=== PATIENT | male | born 1995 | race Caucasian/White ===

== ENCOUNTER 2018-10-17 08:58 | Emergency (ER) | payer MEDICAID ==
[~2018-10-17] VITALS: Ht 180.3 cm; Wt 68.0 kg
[~2018-10-17 08:58] MED LIST: ALBU0.0952 IH
[2018-10-17 09:00] VITALS: BP 137/79
[2018-10-17 09:53] VITALS: BP 108/72
== END 2018-10-17 09:53 | disposition home or self-care (01) ==
LOC: MED 08:58
DX: R10.30 Lower abdominal pain, unspecified (principal); J45.909 Unspecified asthma, uncomplicated; Z91.030 Bee allergy status; Z79.899 Other long term (current) drug therapy
CPT/HCPCS: 99283